=== PATIENT | female | born 2000 | race Caucasian/White ===

== ENCOUNTER 2019-09-06 20:16 | Emergency (ER) | payer MEDICAID ==
[~2019-09-06] VITALS: Ht 154.9 cm; Wt 77.1 kg
[2019-09-06 20:20] VITALS: BP 118/84
--- NOTE | 2019-09-06 20:26 | NUR ---
PATIENT AMB TO BED 5
--- NOTE | 2019-09-06 20:35 | NUR ---
19 Y/O FEMALE C/O BLURRED LT EYE, SLURRED SPEECH, AND FEELING FAINT THAT OCCURED AROUND 0900 TODAY. PT STATES SHE CALLED AMBULANCE AND WAS SEEN AT [facility]. PT STATES THEY DID NEURO EXAM AND SENT HER HOME, STATES SHE IS AFRAID SHE IS HAVING MINI STROKE. 5/10 GENERALIZED BODY WEAKNESS STARTING TODAY. RR EVEN AND UNLABORED. NO FACIAL DROOP NOTED, [employer]MM[employer] STRENGTH. VSS. FRIENDS AT BEDSIDE MEDHX: DENIES ALLERGIES: PACHECO
--- NOTE | 2019-09-06 20:42 | NUR ---
Dr. Hillman examining patient.
--- NOTE | 2019-09-06 21:01 | NUR ---
PT RETURN FROM CT
[2019-09-06 21:47] VITALS: BP 122/82
--- NOTE | 2019-09-06 21:48 | NUR ---
Patient discharged with v/s stable. Written and verbal after care instructions given and explained. Patient verbalized understanding. Ambulatory with steady gait. All questions addressed prior to discharge. Advised to follow up with PMD.
== END 2019-09-06 21:48 | disposition home or self-care (01) ==
LOC: MED 20:16
DX: F48.8 Other specified nonpsychotic mental disorders (principal); R29.810 Facial weakness; R47.9 Unspecified speech disturbances
CPT/HCPCS: 70450; 81002; 81025; 99284

== ENCOUNTER 2019-10-25 08:10 | Emergency (ER) | payer MEDICAID ==
[~2019-10-25] VITALS: Ht 154.9 cm; Wt 88.6 kg
[2019-10-25 08:17] VITALS: BP 129/98
[2019-10-25] MEDS ORDERED: OXYM30SP NS (08:22)
[2019-10-25 08:52] VITALS: BP 129/98
== END 2019-10-25 08:52 | disposition home or self-care (01) ==
LOC: MED 08:10
DX: J06.9 Acute upper respiratory infection, unspecified (principal); Z79.899 Other long term (current) drug therapy
CPT/HCPCS: 99283